=== PATIENT | female | born 1990 | race Caucasian/White ===

== ENCOUNTER → 2017-06-14 15:48 | Outpatient (CLI) | payer OTHER, SELFPAY ==
[2017-06-14 20:07] LABS: Group B Strep DNA By PCR POSITIVE (Negative); Probe Check PASS
== END ==
PROVIDERS: Visit Provider Obstetrics & Gynecology
DX: Z36.85 Encounter for antenatal screening for Streptococcus B (principal)
CPT/HCPCS: 87653

== ENCOUNTER 2017-07-03 11:00 | Inpatient (IN) | payer OTHER, SELFPAY ==
[2017-07-03 11:20] VITALS: BMI 32.3
[2017-07-03] MEDS: Lactated Ringers 1,000 ML 50 ML IV ×2 (11:25→12:52)
[2017-07-03 12:08] LABS: Hematocrit 37.7 % (37-47); Hemoglobin 12.5 g/dl (12.0-15.0); Mean Corp Hgb Conc 33.2 g/gl (32-36); Mean Corpuscular Hgb 31.3 pg (27.0-32.0); Mean Corpuscular Volume 94.3 fL (81-99); Platelet Count 194 K/mm3 (150-450)
[2017-07-03 12:09] LABS: Scan Indicated on CBC? Y/N NO
[2017-07-03] MEDS: Oxytocin 30 units/NS 500 ml 30 UNITS/500 ML IV.SOLN 334 UNITS IV (16:53)
--- NOTE | 2017-07-03 17:06 | PCM.OB.VAG ---
Vaginal Delivery Maternal Presentation: Active Labor Amniotic Membrane Rupture Type: Artificial Amniotic Fluid Description: Clear Final LADONNA: 07/08/17 Final LADONNA Source: US <20 weeks Gestational age: 39 Weeks and 2 Days Date of Procedure: 07/03/17 Pre-Operative Diagnosis: IUP Post-Operative Diagnosis: IUP Surgery/ Procedure Performed: Spontaneous Vaginal Delivery Type of Anesthesia: Epidural Description of Procedure: Spontaneous vaginal delivery of a viable female infant with Apgars of 8/9 in an occiput anterior presentation with clear amniotic fluid and normal three-vessel placenta. No episiotomy or laceration. Sponge counts okay. Delivery physician: Addison Tatum MD. Presentation: Vertex Placental Delivery Description: Spontaneous Placenta Disposition: [facility] Cord Vessel Description: 3 Vessels Cord Gases drawn per routine: ABG Cord Entanglement: None Estimated Blood Loss: 150 cc Infant A gender: Female (1 minute): 8 (5 minute): 9 Episiotomy Description: None Laceration: None Medications given after delivery: IV Pitocin Complications: None
--- NOTE | 2017-07-03 17:09 | OP.PCM_ITS ---
Vaginal Delivery Maternal Presentation: Active Labor Amniotic Membrane Rupture Type: Artificial Amniotic Fluid Description: Clear Final LADONNA: 07/08/17 Final LADONNA Source: US <20 weeks Gestational age: 39 Weeks and 2 Days Date of Procedure: 07/03/17 Pre-Operative Diagnosis: IUP Post-Operative Diagnosis: IUP Surgery/ Procedure Performed: Spontaneous Vaginal Delivery Type of Anesthesia: Epidural Description of Procedure: Spontaneous vaginal delivery of a viable female infant with Apgars of 8/9 in an occiput anterior presentation with clear amniotic fluid and normal three-vessel placenta. No episiotomy or laceration. Sponge counts okay. Delivery physician : Addison Tatum MD. Presentation: Vertex Placental Delivery Description: Spontaneous Placenta Disposition: [facility] Cord Vessel Description: 3 Vessels Cord Gases drawn per routine: ABG Cord Entanglement: None Estimated Blood Loss: 150 cc Infant A gender: Female (1 minute): 8 (5 minute): 9 Episiotomy Description: None Laceration: None Medications given after delivery: IV Pitocin Complications: None
--- NOTE | 2017-07-03 17:10 | DCINST_ITS ---
Discharge Diet: No Restrictions Discharge Activity: May Shower, May Take a Tub Bath May resume sexual activity in: 4-6 weeks Additional Activity Instructions:: Nothing in the vagina for 4-6 weeks. You may return to work/school in 6 weeks. Call your doctor if you observe: Fever of 101 or Higher, Inability to urinate, Inability to have a bowel movement, Using more than one pad per hour Additional Instructions: If you experience any of the following, contact your healthcare provider. * Bleeding that soaks a pad every hour for 2 hours * Unrelieved incision or abdominal pain * Swelling, redness, discharge or bleeding from your incision or episiotomy site * Your incision begins to separate * Problems urinating (including inability to urinate or burning while urinating) . * Visual changes * Severe headache * Flu-like symptoms * Pain or redness in one of both of your breasts * Pain, warmth, tenderness or swelling in your legs, especially the calf area * Frequent nausea and vomiting * Symptoms of depression or anxiety If you experience any of the following, call 911 or go to the nearest Emergency Room. * Chest pain * Problems breathing * Seizure activity * Partial or complete paralysis of a body part, slurred speech, weakness or drooping of the face, or a sudden inability to walk or hold your balance Allergies/Adverse Reactions: Allergies Penicillins [PCN] Allergy (Verified 07/03/17 15:44) Hives Pt states was a childhood reaction that caused hives. Pt stated that she has used amoxicillin on multiple occasions and has not had any reactions. acetaminophen [From Vicodin] Adverse Reaction (Verified 07/03/17 11:21) Vomiting hydrocodone [From Vicodin] Adverse Reaction (Verified 07/03/17 11:21) Vomiting Medications to take at Discharge Cetirizine HCl [Zyrtec] 10 mg PO DAILY 03/16/16 Tablet 07/03/17 Please Follow Up With: Sakina Storey MD - [phone] When: Call to make an appointment with your doctor in 6 weeks. Primary Care Physician: Yolette Prieto PA-C [Primary Care Provider] -
[2017-07-03] MEDS: Oxytocin 30 units/NS 500 ml 30 UNITS/500 ML IV.SOLN 167 UNITS IV (17:23)
[2017-07-03] MEDS: Ibuprofen 600 MG Tablet PO (18:47)
[2017-07-03 19:40] VITALS: BP 110/54; PULSE 91; RESP 17; TEMP 36.1; O2SAT 97
[2017-07-03 23:20] VITALS: BP 113/57; PULSE 70; RESP 17; TEMP 35.9; O2SAT 97
[2017-07-04] MEDS: Ibuprofen 600 MG Tablet PO ×3 (01:19→13:57)
[2017-07-04 05:00] VITALS: BP 135/76; PULSE 90; RESP 18; TEMP 36.1; O2SAT 97
[2017-07-04 07:50] VITALS: BP 126/79; PULSE 82; RESP 16; TEMP 36.6; O2SAT 98
[2017-07-04] MEDS: Senna/Docusate Sodium 1 Tablet PO (08:03)
--- NOTE | 2017-07-04 08:57 | PCM.PN.OB ---
Subjective: Patient without complaints. Breast-feeding going well. Minimal vaginal bleeding. Wants to go home. - Physical Exam Vital Signs AF, VSS Temp Pulse Resp BP Pulse Ox 97.8 F 82 16 126/79 H 98 07/04/17 07:50 07/04/17 07:50 07/04/17 07:50 07/04/17 07:50 07/04/17 07:50 Oxygen Delivery Method Room Air Weight: 200 lb Body Mass Index (BMI) 32.3 Intake and Output for Last 24 Hours 07/02/17 07/03/17 07/04/17 23:59 23:59 23:59 Intake Total 1824 / 1824 Output Total 2500 / 2500 Balance -676 / -676 Laboratory Tests Past 24 Hrs 07/03/17 07/03/17 11:25 11:25 WBC 11.0 RBC 4.00 L Hgb 12.5 Hct 37.7 MCV 94.3 MCH 31.3 MCHC 33.2 RDW 14.0 RDW Differential 48.0 H Plt Count 194 MPV 10.0 Blood Type O POSITIVE Antibody Screen NEGATIVE Assessment/Plan Doing well. Will release to home with routine instructions.
[2017-07-04 12:00] VITALS: BP 127/67; PULSE 87; RESP 16; TEMP 36.8; O2SAT 97
[2017-07-04 15:40] VITALS: BP 130/72; PULSE 87; RESP 16; TEMP 36.6; O2SAT 98
--- NOTE | 2017-07-04 18:00 | NURSING ---
baby bands verified by nurse and mother. baby discharge sheet signed by mother
== END 2017-07-04 18:10 | disposition home or self-care (01) | DRG 775 ==
PROVIDERS: Admitting Provider Obstetrics & Gynecology; Family Provider Family Medicine; PCP Family Medicine; Visit Provider Obstetrics & Gynecology
DX: O80 Encounter for full-term uncomplicated delivery (principal); Z79.899 Other long term (current) drug therapy; Z3A.39 39 weeks gestation of pregnancy; Z37.0 Single live birth
CPT/HCPCS: 59025; 59050; 85027; 86850; 86900; 99218; J7120; G0378

== ENCOUNTER → 2018-06-27 15:19 | Outpatient (CLI) | payer OTHER, SELFPAY | PROVIDERS: Visit Provider Obstetrics & Gynecology | DX: Z12.4 Encounter for screening for malignant neoplasm of cervix (principal) | CPT/HCPCS: 88175; G0145 ==

== ENCOUNTER → 2018-08-04 14:04 | Outpatient (CLI) | payer OTHER, SELFPAY ==
[2018-08-04 22:10] LABS: Chlamydia Trachomatis by PCR Negative (Negative); Neisserai gonorrhoeae by PCR Negative (Negative); Probe Check PASS; Sample Adequacy Control PASS; Specimen Processing Control PASS
== END ==
PROVIDERS: Visit Provider Obstetrics & Gynecology
DX: Z11.3 Encounter for screening for infections with a predominantly sexual mode of transmission (principal); Z32.01 Encounter for pregnancy test, result positive
CPT/HCPCS: 87491; 87591

== ENCOUNTER → 2018-08-16 15:55 | Outpatient (CLI) | payer OTHER, SELFPAY ==
[2018-08-16 17:31] LABS: Color, Urine Straw (Yellow); Glucose, Dipstick Normal (Normal); Ketone-Dipstick Negative (Negative); Leukocyte Esterase-Dipstick Negative /ul (Negative); Nitrite-Dipstick Negative (Negative); Occult Blood-Urine Negative /ul (Negative); Protein-Dipstick Negative (Negative); Urine Bilirubin Dipstick Negative (Negative); Urine Clarity Clear (Clear); Urine Urobilinogen Normal (Normal); Urine pH 6.5 (5.0 - 8.0)
[2018-08-16 17:34] LABS: Absolute Lymphocyte Count 2.15 X10^3/ul (0.83-4.51); Absolute Neutrophil Count 5.2 X10^3/uL (2.0-7.7); Basophil# 0.03 X10^3/uL; Basophil% 0.4 % (0-1); Eosinophil# 0.15 X10^3/uL; Eosinophils% 1.9 % (0-5); Hematocrit 38.8 % (37-47); Hemoglobin 13.4 g/dl (12.0-15.0); Lymphocyte # 2.15 X10^3/ul (4.0); Mean Corp Hgb Conc 34.5 g/gl (32-36); Mean Corpuscular Hgb 30.5 pg (27.0-32.0); Mean Corpuscular Volume 88.2 fL (81-99); Mean Platelet Vol. 10.5 fl (6.2-12.0); Monocyte# 0.42 X10^3/uL; Monocyte% 5.3 % (0-10); Neutrophil # 5.18 X10^3/uL (2.7-7.7); Neutrophil % 65.1 % (47-70); Platelet Count 278 K/mm3 (150-450); RBC Distribution Width CV 12.3 % (11.6-14.6); RBC Distribution Width SD 38.8 fl (35.1-43.9)
[2018-08-16 17:41] LABS: POSITIVE COUNT NO; POSITIVE DIFFERENTIAL NO; POSITIVE MORPHOLOGY NO
[2018-08-16 17:53] LABS: Thyroid Stim Hormone (TSH) 0.45 uIU/mL (0.358-3.74)
[2018-08-16 18:07] LABS: Amphetamine Urine VISTA NEGATIVE (<1000 ng/mL); Barbiturate Urine VISTA NEGATIVE (< 200 ng/mL); Benzodiazepine Urine VISTA NEGATIVE (< 200 ng/mL); Cocaine Urine VISTA NEGATIVE (< 300 ng/mL); Ecstacy Urine VISTA NEGATIVE (< 500 ng/mL); Methadone Urine VISTA NEGATIVE (< 300 ng/mL); PCP Urine VISTA NEGATIVE (< 25 ng/mL); THC Urine VISTA NEGATIVE (< 50 ng/mL); Vista UDS pH Range 6
[2018-08-16 18:10] LABS: COTININE Drug Screen Negative (<200 ng/mL)
[2018-08-16 18:35] LABS: HIV - WCH Non-Reactive (Nonreactive); Rubella IgG 122.2 IU/mL
[2018-08-18 16:36] LABS: HEPATITIS B SURFACE AG Negative (Negative); Hep C Antibodies <0.1 s/co ratio (0.0-0.9)
[2018-08-19 01:43] LABS: Prenatal RPR NONREACTIVE (NONREACTIVE)
== END ==
PROVIDERS: Visit Provider Obstetrics & Gynecology
DX: Z34.81 Encounter for supervision of other normal pregnancy, first trimester (principal)
CPT/HCPCS: 36415; 80307; 81002; 84443; 85025; 86703; 86762; 86803; 87340

== ENCOUNTER → 2018-09-14 13:42 | Outpatient (CLI) | payer OTHER, SELFPAY | PROVIDERS: Visit Provider Obstetrics & Gynecology | DX: O26.891 Other specified pregnancy related conditions, first trimester (principal); R30.0 Dysuria; Z3A.00 Weeks of gestation of pregnancy not specified | CPT/HCPCS: 87086; 87088 ==

== ENCOUNTER → 2018-12-29 16:09 | Outpatient (CLI) | payer OTHER, SELFPAY ==
[2018-12-29 17:27] LABS: Hematocrit 34.7 % (37-47); Hemoglobin 11.6 g/dL (12.0-15.0); Mean Corp Hgb Conc 33.4 g/dL (32-36); Mean Corpuscular Volume 95.9 fL (81-99); Platelet Count 213 K/mm3 (150-450); RBC Distribution Width CV 13.2 % (11.6-14.6); RBC Distribution Width SD 46.4 fl (35.1-43.9); Red Blood Count 3.62 M/mm3 (4.2-5.4); White Blood Count 8.8 K/mm3 (4.4-11.0)
[2018-12-29 18:11] LABS: Glucose Challenge Gest 1H 50g 89 mg/dL (70-140)
== END ==
PROVIDERS: Visit Provider Obstetrics & Gynecology
DX: Z34.83 Encounter for supervision of other normal pregnancy, third trimester (principal)
CPT/HCPCS: 36415; 82950; 85027

== ENCOUNTER → 2019-02-22 14:17 | Outpatient (CLI) | payer OTHER, SELFPAY | PROVIDERS: Visit Provider Advanced Practice Midwife | DX: Z36.85 Encounter for antenatal screening for Streptococcus B (principal) | CPT/HCPCS: 87081 ==

== ENCOUNTER 2019-03-15 00:46 | Inpatient (IN) | payer OTHER, SELFPAY ==
[2019-03-15 01:18] VITALS: BMI 35.2
[2019-03-15] MEDS: Lactated Ringers 1,000 ML 50 ML IV (01:20)
[2019-03-15] MEDS: Lactated Ringers 500 ML 999 ML IV ×2 (01:25→04:19)
[2019-03-15 02:01] LABS: Absolute Lymphocyte Count 1.84 X10^3/uL (0.83-4.51); Absolute Neutrophil Count 7.9 X10^3/uL (2.0-7.7); Basophil# 0.04 X10^3/uL; Basophil% 0.4 % (0-1); Eosinophil# 0.17 X10^3/uL; Eosinophils% 1.6 % (0-5); Hematocrit 35.5 % (37-47); Hemoglobin 11.5 g/dL (12.0-15.0); Lymphocyte # 1.84 X10^3/ul (4.0); Lymphocyte % 17.2 % (19-41); Mean Corp Hgb Conc 32.4 g/dL (32-36); Mean Corpuscular Hgb 31.6 pg (27.0-32.0); Mean Corpuscular Volume 97.5 fL (81-99); Mean Platelet Vol. 9.7 fl (6.2-12.0); Monocyte# 0.62 X10^3/uL; Monocyte% 5.8 % (0-10); NRBC Flagged by Analyzer 0 % (0-5); Neutrophil # 7.85 X10^3/uL (2.7-7.7); Neutrophil % 73.6 % (47-70); Platelet Count 167 K/mm3 (150-450); RBC Distribution Width CV 13.8 % (11.6-14.6); Red Blood Count 3.64 M/mm3 (4.2-5.4); White Blood Count 10.7 K/mm3 (4.4-11.0)
--- NOTE | 2019-03-15 02:05 | HP.PCM_ITS ---
- Problem List (1) 39 weeks gestation of Status: Acute History Date of Admission: 03/17/16 Final LADONNA: 03/21/19 Final LADONNA Source: US <20 weeks Gestational age: 39 Weeks and 1 Days History of this : This is a 28 year-old, G [6], P [2], at 39 weeks gestational age. Allergies Penicillins [PCN] Allergy (Verified 07/03/17 15:44) Hives Pt states was a childhood reaction that caused hives. Pt stated that she has used amoxicillin on multiple occasions and has not had any reactions. acetaminophen [From Vicodin] Adverse Reaction (Verified 07/03/17 11:21) Vomiting hydrocodone [From Vicodin] Adverse Reaction (Verified 07/03/17 11:21) Vomiting Home Medications: Home Medications Tablet 07/03/17 Smoking Status: Never smoker Alcohol: None Number of Fetus(es): 1 NST - FHR Rate Baby A Baseline: 140 Variability:: Moderate Accelerations:: 15 x 15 Decelerations:: Variable NST Reactive:: Yes FHR Category:: Category II Uterine Activity:: UC Q4 minutes History Past Pregnancies: Past Pregnancies Delivery Date Name GA/ Weeks Outcome Route Wt Sex Labor Length Anesthesia Delivery Location Provider FOB PRIOR HISTORY: 1 10/01/13 7 wks 0 hrs Sab 2 12/30/14 Male 38 wks 18 hrs Vag 3 03/01/16 6 wks 0 hrs Sab 4 09/26/16 6 wks 0 hrs Sab 5 07/03/17 Female 39 wks 15 hrs Vag Labs: Mom's Problem List Problem Status Onset Code 39 weeks gestation of Acute Z3A.[id number] Mom's Labs & Results 03/15/19 03/15/19 03/15/19 01:20 01:20 01:52 WBC Cancelled 10.7 Corrected WBC Cancelled RBC Cancelled 3.64 L Hgb Cancelled 11.5 L Hct Cancelled 35.5 L MCV Cancelled 97.5 MCH Cancelled 31.6 MCHC Cancelled 32.4 RDW Std Deviation Cancelled 49.0 H RDW Coeff of Benny Cancelled 13.8 Plt Count Cancelled 167 MPV Cancelled 9.7 Immature Gran % (Auto) Cancelled 1.400 H Neut % (Auto) Cancelled 73.6 H Lymph % (Auto) Cancelled 17.2 L [place] % (Auto) Cancelled 5.8 Eos % (Auto) Cancelled 1.6 Baso % (Auto) Cancelled 0.4 Absolute Neuts (auto) Cancelled 7.9 H Absolute Lymphs (auto) Cancelled 1.84 Total Counted Cancelled Neutrophils % (Manual) Cancelled Band Neutrophils % Cancelled Lymphocytes % (Manual) Cancelled Monocytes % (Manual) Cancelled Eosinophils % (Manual) Cancelled Basophils % (Manual) Cancelled Metamyelocytes % Cancelled Myelocytes % Cancelled Promyelocytes % Cancelled Blast Cells % Cancelled Plasma Cell % (Manual) Cancelled Other Cells % Cancelled Nucleated RBC % Cancelled 0 Nucleated RBCs/100 WBC Cancelled Differential Comment Cancelled Diff Path Review Cancelled Hypersegmented Neuts Cancelled Atypical Lymphocytes Cancelled Reactive Lymphocytes Cancelled Smudge Cells Cancelled Toxic Granulation Cancelled Toxic Vacuolation Cancelled Dohle Bodies Cancelled Navjot Rods Cancelled Platelet Estimate Cancelled Plt Morphology Comment Cancelled RBC Morphology Cancelled Polychromasia Cancelled Hypochromasia Cancelled Poikilocytosis Cancelled Basophilic Stippling Cancelled Anisocytosis Cancelled Microcytosis Cancelled Macrocytosis Cancelled Spherocytes Cancelled Sickle Cells Cancelled Target Cells Cancelled Tear Drop Cells Cancelled Ovalocytes Cancelled Stomatocytes Cancelled Echols-Fifty-Six Bodies Cancelled Row[place] Cells Cancelled Bite Cells Cancelled Crenated Cell Cancelled Acanthocytes (Spur) Cancelled Rouleaux Cancelled Schistocytes Cancelled Blood Type Pending Antibody Screen Pending Course Did the patient receive Yes care? Labs Blood Type: O RH: POSITIVE RPR/VDRL/Syphilis Nonreactive Rubella status Immune HbSAg Negative Date Done: 08/16/18 Chlamydia Negative Gonorrhea Negative HIV/AIDS Non-Reactive Group B Strep: Negative Current Obstetrical History Gestational Diabetes No Incompetent Cervix No Infertility No IUGR No Macrosomia No Hypertension/Pre-eclampsia No Placenta Previa/Abruption No PTL/PROM No Uterine anomaly No Oligohydramnios No Polyhydramnios No Multiple gestation No Past Medical History Asthma No: past hx when younger Diabetes No Hypertension No Heart disease No Mitral valve prolapse No Neurologic/Seizure disorder/ No Migraines Kidney disease No Liver disease No Varicosities Yes: bilateral legs Clotting disorders/Hx of DVT No Thyroid Dysfunction No Other medical diseases No Psychiatric disorders No Major trauma No Abnormal PAP smear No Sleep apnea No Mammogram in the last 2 years No Medications Taken During Reason for taking medication [ in first trimester Progesterone] Social History Marital Status: Alleged father James Sloan Smoking No Smoking Status Never smoker Expected Infant Delivery Method: Spontaneous Vaginal Number of Visits: 11 Review of Systems Constitutional: Denies: Chills, Fever, Weight Change HEENT: Denies: Head Aches, Sinus Congestion, Sinus Drainage Cardiovascular: Denies: Chest Pain, Palpitations Respiratory: Denies: Cough, Shortness of breath at rest, Sputum production Gastrointestinal: Denies: Abdominal Pain, Nausea, Vomiting Genitourinary: Denies: Dysuria Musculoskeletal: Denies: Joint Pain, Joint Tenderness Skin: Denies: Rash, Wounds Neurological: Denies: Numbness, Tingling, Focal weakness Psychiatric: Denies: Anxiety, Depression, Homicidal Ideations, Suicidal Ideations Hematologic/ Lymphatic: Denies: Easy Bruising, Easy Bleeding Physical Exam General: Alert, Oriented x3, No apparent distress HEENT: Atraumatic, Normocephalic. 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 Negative for: Vulvar lesions Estimated gestational size: Appropriate for gestational size Presentation: Cephalic Cervix Dilation (cm): 7 Station: -2 Effacement (%): 70 Assessment/Plan All Active Problems 39 weeks gestation of (Acute) This is a 28 year-old, G [6], P [2], at 39 weeks gestational age. Active labor FHR baseline 140, +accels, +variables with moderate variability. Category II. Receiving IV fluids. In collaboration with attending Makayla Sanderson is getting IV bolus prior to epidural. Expect
[2019-03-15] MEDS: fentaNYL-bupivacaine (epidural) 100 ML BAG EPIDURAL (02:35)
[2019-03-15] MEDS: Oxytocin 30 units/NS 500 ml 30 UNITS/500 ML IV.SOLN 334 UNITS IV (05:02)
--- NOTE | 2019-03-15 05:28 | PCM.OPRPT ---
Problem List (1) 39 weeks gestation of Status: Acute Vaginal Delivery Maternal Presentation: Active Labor presents for active labor, contractions Q4 minutes Amniotic Membrane Rupture Type: Spontaneous Rupture of Membrane time: with onset of pushing Amniotic Fluid Description: Clear Final LADONNA: 03/21/19 Final LADONNA Source: US <20 weeks Gestational age: 39 Weeks and 1 Days Date of Procedure: 03/15/19 Pre-Operative Diagnosis: 39 weeks gestation Post-Operative Diagnosis: S/P Surgery/ Procedure Performed: Spontaneous Vaginal Delivery Type of Anesthesia: Epidural Description of Procedure: CTSP when complete/+2 with intact bag. Pushed well, SROM, delivered a viable male over intact perineum OA to JOSE DANIEL. Loose cord removed from infants shoulder and body, placed on mothers abdomen. Apgars 8/9. Cord clamped x2 by provider and cut by FOB. Placenta delivered spontaneously, Ruano mechanism, intact, 3 vessel cord, central insertion. EBL 150 Presentation: JOSE DANIEL Placental Delivery Description: Spontaneous Placenta Disposition: [facility] Cord Vessel Description: 3 Vessels Cord Entanglement: None - loose around shoulder, wrapped around body Estimated Blood Loss: 150 A gender: Male (1 minute): 8 (5 minute): 9 Episiotomy Description: None Laceration: None - perineal skid francine Medications given after delivery: IV Pitocin
--- NOTE | 2019-03-15 05:42 | DCINST_ITS ---
Discharge Diet: No Restrictions Discharge Activity: Return to Normal Activity, May not drive while taking narcotic pain medications., May Shower May resume sexual activity in: 4-6 weeks Additional Activity Instructions:: Nothing in the vagina for 4-6 weeks. You may return to work/school in 6 weeks. Call your doctor if you observe: Fever of 101 or Higher, Inability to urinate, Inability to have a bowel movement, Using more than one pad per hour, Shortness of breath, Dizziness, Chest pain, Uncontrolled pain Additional Instructions: If you experience any of the following, contact your healthcare provider. * Bleeding that soaks a pad every hour for 2 hours * Unrelieved incision or abdominal pain * Swelling, redness, discharge or bleeding from your incision or episiotomy site * Your incision begins to separate * Problems urinating (including inability to urinate or burning while urinating). * Visual changes * Severe headache * Flu-like symptoms * Pain or redness in one of both of your breasts * Pain, warmth, tenderness or swelling in your legs, especially the calf area * Frequent nausea and vomiting * Symptoms of depression or anxiety If you experience any of the following, call 911 or go to the nearest Emergency Room. * Chest pain * Problems breathing * Seizure activity * Partial or complete paralysis of a body part, slurred speech, weakness or drooping of the face, or a sudden inability to walk or hold your balance Allergies/Adverse Reactions: Allergies Penicillins [PCN] Allergy (Verified 07/03/17 15:44) Hives Pt states was a childhood reaction that caused hives. Pt stated that she has used amoxicillin on multiple occasions and has not had any reactions. acetaminophen [From Vicodin] Adverse Reaction (Verified 07/03/17 11:21) Vomiting hydrocodone [From Vicodin] Adverse Reaction (Verified 07/03/17 11:21) Vomiting Medications to take at Discharge Tablet 07/03/17 Please Follow Up With: Sakina Storey MD When: Call to make an appointment with your doctor in 6 weeks. Test Results: Test results from this visit will be discussed in further detail at your follow- up appointment, if applicable. Proposed Discharge Date: 03/17/19
[2019-03-15 07:30] VITALS: BP 115/58; PULSE 99; RESP 18; TEMP 35.7
[2019-03-15] MEDS: 0.9% Saline Lock 10 ML Syringe IV (07:30)
--- NOTE | 2019-03-15 09:42 | PN.OBGYN_ITS ---
Patient Problems: Active and Suspected Problems 39 weeks gestation of (Acute) Subjective: Tired but transitioning well 2 hours post delivery; has breastfed well and now sleeping in crib next to pts bed; bedside and supportive; denies needs at this time Objective: AVSS - Physical Exam Vitals/I&O's: Vital Signs Temp Pulse Resp BP 96.3 F L 99 18 115/58 L 03/15/19 07:30 03/15/19 07:30 03/15/19 07:30 03/15/19 07:30 Oxygen Delivery Method Room Air Weight: 218 lb 4.122 oz Body Mass Index (BMI) 35.2 Intake and Output for Last 24 Hours 03/13/19 03/14/19 03/15/19 23:59 23:59 23:59 Intake Total Balance General: Alert, Oriented x3, Cooperative, No apparent distress Neurological: Cranial nerves II-XII grossly intact Psych/Mental Status: Normal Affect, Appropriate, Alert and oriented to time, place, person, mood and affect Laboratory Results 03/15/19 01:20: WBC Cancelled, Corrected WBC Cancelled, RBC Cancelled, Hgb Cancelled, Hct Cancelled, MCV Cancelled, MCH Cancelled, MCHC Cancelled, RDW Std Deviation Cancelled, RDW Coeff of Benny Cancelled, Plt Count Cancelled, MPV Cancelled, Immature Gran % (Auto) Cancelled, Neut % (Auto) Cancelled, Lymph % (Auto) Cancelled, [place] % (Auto) Cancelled, Eos % (Auto) Cancelled, Baso % (Auto) Cancelled, Absolute Neuts (auto) Cancelled, Absolute Lymphs (auto) Cancelled, Total Counted Cancelled, Neutrophils % (Manual) Cancelled, Band Neutrophils % Cancelled, Lymphocytes % (Manual) Cancelled, Monocytes % (Manual) Cancelled, Eosinophils % (Manual) Cancelled, Basophils % (Manual) Cancelled, Metamyelocytes % Cancelled, Myelocytes % Cancelled, Promyelocytes % Cancelled, Blast Cells % Cancelled, Plasma Cell % (Manual) Cancelled, Other Cells % Cancelled, Nucleated RBC % Cancelled, Nucleated RBCs/100 WBC Cancelled, Differential Comment Cancelled, Diff Path Review Cancelled, Hypersegmented Neuts Cancelled, Atypical Lymphocytes Cancelled, Reactive Lymphocytes Cancelled, Smudge Cells Cancelled, Toxic Granulation Cancelled, Toxic Vacuolation Cancelled, Dohle Bodies Cancelled, Navjot Rods Cancelled, Platelet Estimate Cancelled, Plt Morphology Comment Cancelled, RBC Morphology Cancelled, Polychromasia Cancelled, Hypochromasia Cancelled, Poikilocytosis Cancelled, Basophilic Stippling Cancelled, Anisocytosis Cancelled, Microcytosis Cancelled, Macrocytosis Cancelled, Spherocytes Cancelled, Sickle Cells Cancelled, Target Cells Cancelled, Tear Drop Cells Cancelled, Ovalocytes Cancelled, Stomatocytes Cancelled, [place] Bodies Cancelled, [place] Cells Cancelled, Bite Cells Cancelled, Crenated Cell Cancelled, Acanthocytes (Spur) Cancelled, Rouleaux Cancelled, Schistocytes Cancelled 03/15/19 01:20: Blood Type O POSITIVE, Antibody Screen NEGATIVE 03/15/19 01:52: WBC 10.7, RBC 3.64 L, Hgb 11.5 L, Hct 35.5 L, MCV 97.5, MCH 31.6, MCHC 32.4, RDW Std Deviation 49.0 H, RDW Coeff of Benny 13.8, Plt Count 167, MPV 9.7, Immature Gran % (Auto) 1.400 H, Neut % (Auto) 73.6 H, Lymph % (Auto) 17.2 L, [place] % (Auto) 5.8, Eos % (Auto) 1.6, Baso % (Auto) 0.4, Absolute Neuts (auto) 7.9 H, Absolute Lymphs (auto) 1.84, Nucleated RBC % 0 Current Medications Acetaminophen (Tylenol) 1,000 mg PO Q8H PRN PRN PRN Reason: Pain Score 1-3/10 Bisacodyl (Dulcolax) 10 mg RECTAL UD PRN PRN Reason: If no BM Dibucaine (Dibucaine) 1 applic TOPICAL TID PRN PRN; Protocol PRN Reason: Discomfort Hydrocortisone (Hytone) 1 applic TOPICAL TID PRN PRN; Protocol PRN Reason: Discomfort Ibuprofen (Motrin) 600 mg PO Q6H PRN PRN PRN Reason: Pain Score 1-3/10 Methylergonovine Maleate (Methergine) 0.2 mg IM X1 PRN PRN Reason: Excess bleeding/uterine atony Ondansetron HCl (Zofran) 4 mg IV Q4H PRN PRN PRN Reason: Nausea Senna/Docusate Sodium (Senokot-S, [place]-Colace) 1 - 2 tablet PO DAILY PRN PRN PRN Reason: Constipation Simethicone (Mylicon) 80 mg PO PCHS PRN PRN Reason: Indigestion/Stomach pain Sodium Chloride () 5 - 15 ml IV UD PRN PRN Reason: SALINE FLUSH Last Admin: 03/15/19 07:30 Dose: 10 ml Documented by: Zolpidem Tartrate (Ambien (Generic)) 5 mg PO QHS PRN PRN PRN Reason: Insomnia Medical Necessity - Tobacco Use Smoking Status: Never smoker Assessment/Plan All Active Problems 39 weeks gestation of (Acute) Assessment: 38yo G6now P3 delivered this morning at 39w1d gestation by 9w2d [facility], still in recovery from delivery Plan: Continue routine care
[2019-03-15 11:36] VITALS: BP 116/73; PULSE 100; RESP 16; TEMP 37.6
[2019-03-15] MEDS: Ibuprofen 600 MG Tablet PO ×2 (12:33→23:06)
--- NOTE | 2019-03-15 13:15 | NURSING ---
Reviewed student nurse charting and it is complete.
[2019-03-15 16:00] VITALS: BP 122/79; PULSE 86; RESP 16; TEMP 36.4
[2019-03-15 19:55] VITALS: BP 131/80; PULSE 91; RESP 16; TEMP 36.5; O2SAT 97
[2019-03-16 01:01] VITALS: BP 133/77; PULSE 89; RESP 17; TEMP 37.2
[2019-03-16 03:00] VITALS: BP 117/56; PULSE 82; RESP 16; TEMP 37
--- NOTE | 2019-03-16 06:39 | PCM.PN.OB ---
Patient Problems: Active and Suspected Problems 39 weeks gestation of (Acute) Subjective: No issues overnight. Doing well with mild cramping nursing. Denies heavy lochia. clusterfed overnight. Objective: avss - Physical Exam Vitals/I&O's: Vital Signs Temp Pulse Resp BP Pulse Ox 98.6 F 82 16 117/56 L 97 03/16/19 03:00 03/16/19 03:00 03/16/19 03:00 03/16/19 03:00 03/15/19 19:55 Oxygen Delivery Method Room Air Weight: 99 kg Body Mass Index (BMI) 35.2 Intake and Output for Last 24 Hours 03/14/19 03/15/19 03/16/19 23:59 23:59 23:59 Intake Total 2105.15 / 2105.15 Output Total 1000 / 1000 Balance 1105.15 / 1105.15 General: Alert, Oriented x3, Cooperative, No apparent distress HEENT: Atraumatic, Normocephalic Lungs: Normal air movement Cardiovascular: Regular rate, Regular Rhythm, Normal S1, Normal S2 Abdomen: Soft, Non Tender, Non-Distended, - - Fundus firm and nontender Extremities: No edema, No Calf Tenderness Neurological: Neuro grossly intact Psych/Mental Status: Normal Affect, Appropriate, Alert and oriented to time, place, person, mood and affect Current Medications Acetaminophen (Tylenol) 1,000 mg PO Q8H PRN PRN PRN Reason: Pain Score 1-3/10 Bisacodyl (Dulcolax) 10 mg RECTAL UD PRN PRN Reason: If no BM Dibucaine (Dibucaine) 1 applic TOPICAL TID PRN PRN; Protocol PRN Reason: Discomfort Hydrocortisone (Hytone) 1 applic TOPICAL TID PRN PRN; Protocol PRN Reason: Discomfort Ibuprofen (Motrin) 600 mg PO Q6H PRN PRN PRN Reason: Pain Score 1-3/10 Last Admin: 03/15/19 23:06 Dose: 600 mg Documented by: Methylergonovine Maleate (Methergine) 0.2 mg IM X1 PRN PRN Reason: Excess bleeding/uterine atony Ondansetron HCl (Zofran) 4 mg IV Q4H PRN PRN PRN Reason: Nausea Senna/Docusate Sodium (Senokot-S, [place]-Colace) 1 - 2 tablet PO DAILY PRN PRN PRN Reason: Constipation Simethicone (Mylicon) 80 mg PO PCHS PRN PRN Reason: Indigestion/Stomach pain Sodium Chloride () 5 - 15 ml IV UD PRN PRN Reason: SALINE FLUSH Last Admin: 03/15/19 07:30 Dose: 10 ml Documented by: Zolpidem Tartrate (Ambien (Generic)) 5 mg PO QHS PRN PRN PRN Reason: Insomnia Medical Necessity - Tobacco Use Smoking Status: Never smoker Assessment/Plan All Active Problems 39 weeks gestation of (Acute) 28yo PPD#1 s/p doing well. -Rh positive -Routine care -Plan for d/c home later today
[2019-03-16 08:03] VITALS: BP 108/48; PULSE 75; RESP 16; TEMP 36
[2019-03-16] MEDS: Ibuprofen 600 MG Tablet PO (08:05)
--- NOTE | 2019-03-16 09:34 | PCM.PN.OB ---
Subjective: Pain well controlled, tolerating diet, passing flatus, well; desires DC home today Objective: AVSS Breasts, soft, nipples mildly excoriated Fundus firm, midline, u/1, lochia small - Physical Exam Vitals/I&O's: Vital Signs Temp Pulse Resp BP Pulse Ox 96.8 F L 75 16 108/48 L 97 03/16/19 08:03 03/16/19 08:03 03/16/19 08:03 03/16/19 08:03 03/15/19 19:55 Oxygen Delivery Method Room Air Weight: 218 lb 4.122 oz Body Mass Index (BMI) 35.2 Intake and Output for Last 24 Hours 03/14/19 03/15/19 03/16/19 23:59 23:59 23:59 Intake Total 2105.15 / 2105.15 Output Total 1000 / 1000 Balance 1105.15 / 1105.15 General: Alert, Oriented x3, Cooperative, No apparent distress HEENT: PERRLA, EOMI Oral: Moist Mucosa Neck: Supple Lungs: Clear to auscultation, Normal air movement Cardiovascular: Regular rate, Regular Rhythm Abdomen: Bowel Sounds Present, Soft, Non Tender, Non-Distended, Passing Flatus Extremities: Capillary Refill Less than 3 Seconds, No Calf Tenderness, Edema - mild, non pitting bilateral lower extremities Skin: No rashes Musculoskeletal: No Tenderness to Palpation of Joints or Extremities Neurological: Cranial nerves II-XII grossly intact, Deep Tendon Reflexes 2+/4 and Symmetrical Psych/Mental Status: Normal Affect, Appropriate, Alert and oriented to time, place, person, mood and affect Current Medications Acetaminophen (Tylenol) 1,000 mg PO Q8H PRN PRN PRN Reason: Pain Score 1-3/10 Bisacodyl (Dulcolax) 10 mg RECTAL UD PRN PRN Reason: If no BM Dibucaine (Dibucaine) 1 applic TOPICAL TID PRN PRN; Protocol PRN Reason: Discomfort Hydrocortisone (Hytone) 1 applic TOPICAL TID PRN PRN; Protocol PRN Reason: Discomfort Ibuprofen (Motrin) 600 mg PO Q6H PRN PRN PRN Reason: Pain Score 1-3/10 Last Admin: 03/16/19 08:05 Dose: 600 mg Documented by: Methylergonovine Maleate (Methergine) 0.2 mg IM X1 PRN PRN Reason: Excess bleeding/uterine atony Ondansetron HCl (Zofran) 4 mg IV Q4H PRN PRN PRN Reason: Nausea Senna/Docusate Sodium (Senokot-S, [place]-Colace) 1 - 2 tablet PO DAILY PRN PRN PRN Reason: Constipation Simethicone (Mylicon) 80 mg PO PCHS PRN PRN Reason: Indigestion/Stomach pain Sodium Chloride () 5 - 15 ml IV UD PRN PRN Reason: SALINE FLUSH Last Admin: 03/15/19 07:30 Dose: 10 ml Documented by: Zolpidem Tartrate (Ambien (Generic)) 5 mg PO QHS PRN PRN PRN Reason: Insomnia Medical Necessity - Tobacco Use Smoking Status: Never smoker Assessment/Plan All Active Problems 39 weeks gestation of (Acute) Assessment: 38yo G6 now P3 delivered this morning at 39w1d gestation by 9w2d US PP day #1, normal involution, normal course Plan: Discharge teaching completed Discharge home today at 24 hours if remains stable
[2019-03-16 13:34] VITALS: BP 116/56; PULSE 86; RESP 16; TEMP 36.8
--- NOTE | 2019-03-16 14:25 | NURSING ---
mother dc home at this time
== END 2019-03-16 14:25 | disposition home or self-care (01) | DRG 807 ==
PROVIDERS: Admitting Provider Obstetrics & Gynecology; Visit Provider Obstetrics & Gynecology
DX: O76 Abnormality in fetal heart rate and rhythm complicating labor and delivery (principal); O69.82X0 Labor and delivery complicated by other cord entanglement, without compression, not applicable or unspecified; Z3A.39 39 weeks gestation of pregnancy; Z37.0 Single live birth
CPT/HCPCS: 59025; 59050; 85025; 86850; 86900; 86901; 99218; J7120; A4216; G0378

== ENCOUNTER → 2019-04-24 13:31 | Outpatient (CLI) | payer OTHER, SELFPAY ==
[2019-04-24 16:39] LABS: Free T3 2.7 pg/mL (2.18-3.98); T4 Free Direct 0.93 ng/dL (0.76-1.46); Thyroid Stim Hormone (TSH) 1.04 uIU/mL (0.358-3.74)
== END ==
PROVIDERS: Visit Provider Obstetrics & Gynecology
DX: K59.00 Constipation, unspecified (principal); R68.89 Other general symptoms and signs
CPT/HCPCS: 36415; 84439; 84443; 84481

== ENCOUNTER 2020-07-10 15:14 | Emergency (ER) | payer OTHER, SELFPAY ==
[2020-07-10 15:15] VITALS: BP 127/83; PULSE 88; RESP 18; TEMP 36.6; O2SAT 97; BMI 30.7
--- NOTE | 2020-07-10 15:33 | ED.VIS.GEN ---
History of Present Illness Chief Complaint: Laceration Informant: Patient Onset: Today Narrative: [id number] presents laceration right thumb prior to arrival. Broke in a fish bowl, she picked that up, glass broke additionally coming down onto her finger. No paresthesias. Tetanus unknown. No anticoagulation medicines. Prior similar symptoms: No Past Medical History - Allergies and Home Meds Allergies/Adverse Reactions: Allergies Penicillins [PCN] Allergy (Verified 07/10/20 15:16) Hives Pt states was a childhood reaction that caused hives. Pt stated that she has used amoxicillin on multiple occasions and has not had any reactions. acetaminophen [From Vicodin] Adverse Reaction (Verified 07/10/20 15:16) Vomiting hydrocodone [From Vicodin] Adverse Reaction (Verified 07/10/20 15:16) Vomiting Past Medical History: None Smoking Status: Never smoker Review of Systems General: Denies: Chills, Fever, Sweats Eyes: Denies: Visual changes - bilaterally, Diplopia ENT: Denies: Rhinorrhea, Sore throat Cardiovascular: Denies: Chest pain, Palpitations Respiratory: Denies: Dyspnea, Cough, Dyspnea on exertion Gastrointestinal: Denies: Abdominal pain, Nausea, Vomiting, Diarrhea, Melena, Hematochezia Genitourinary: Denies: Dysuria, Hematuria, Frequency Musculoskeletal: Denies: Back pain, Extremity Pain Skin: Reports: Wounds. Denies: Rash Neurological: Denies: Headache, Weakness, Numbness Physical Exam Vital Signs/Narrative: Vital Signs Temp Pulse Resp BP Pulse Ox 07/10/20 15:15 97.8 F 88 18 127/83 H 97 Inital Vital Signs reviewed: Yes General: Well nourished, Well developed, No Acute Distress Head: Normocephalic, Atraumatic Eyes: Perrl, EOMI ENT: Moist mucous membranes, No rhinorrhea Neck: Supple, Nontender Cardiovascular: Regular rate, Regular rhythm, No murmurs Respiratory: No distress, CTA bilaterally, Chest nontender Abdomen: Soft, Nontender, Nondistended, Normal bowel sounds Back: Nontender, Normal Inspection Extremities: No edema, - - Right upper extremity: Thumb: 3 cm flap laceration volar aspect proximal phalanx subcutaneous. Interphalangeal joint flexion intact without any pain. No paresthesias distally. Bleeding controlled. Skin: No rash, - Neurological: Alert, Oriented x3, Cranial nerves II-XII grossly intact, Normal Strength, Normal Sensation Psychological: Normal affect, Normal Mood Diagnostic/Tx/Re-eval - Medical Decision Making Patient's tetanus updated, patient reported large glass causing laceration. During repair, copiously flushed, for evaluation of the wound there was no foreign bodies noted. There was no tendon visualized. Full range of motion of the joint. Repaired using a total of 4, 4-0 nylon simple sutures with good approximation. Wound care discussed. Dressing by nursing along with AlumaFoam finger splint. Following up with her PCP 10 to 14 days for suture removal. Procedure note: Verbal consent. 3 cc 1% lidocaine used for a hemimetacarpal block to the volar aspect of the thumb. Turnicot was placed around the finger. Copiously flushing with normal saline with syringe. Hemostats were used to evaluate the wound, there was no foreign bodies or tendons visualized. 4, 4-0 nylon simple interrupted sutures placed to close the flap. Good approximation. Turnicot removed. Patient tolerated procedure well. ED Disposition - Plan for ED Patient: Disposition: Home or Assisted Living Diagnosis: Laceration of right thumb Instructions: ED Laceration, Hand: All Closures Additional Instructions: 4 sutures placed. Follow up with your doctor in 10-14 days for suture removal.
[2020-07-10] MEDS: Diphth,Pertuss(Acell),Tet Vac 0.5 ML Vial IM (15:54)
[2020-07-10] MEDS: Lidocaine 1% (20 ml mdv) 20 ML Vial INFILT (16:24)
== END 2020-07-10 16:30 | disposition home or self-care (01) ==
LOC: ED 16:23
PROVIDERS: Emergency Provider Emergency Medicine; PCP Family Medicine
DX: S61.011A Laceration without foreign body of right thumb without damage to nail, initial encounter (principal); Z23 Encounter for immunization; W25.XXXA Contact with sharp glass, initial encounter; Y93.9 Activity, unspecified; Y92.9 Unspecified place or not applicable; Y99.9 Unspecified external cause status
CPT/HCPCS: 12002; 90715; 99284

== ENCOUNTER → 2020-10-21 06:39 | Outpatient (CLI) | payer OTHER, SELFPAY ==
[2020-10-21 08:16] LABS: Hematocrit 38.6 % (37-47); Hemoglobin 12.7 g/dL (12.0-15.0); Mean Corp Hgb Conc 32.9 g/dL (32-36); Mean Corpuscular Hgb 30.1 pg (27.0-32.0); Mean Corpuscular Volume 91.5 fL (81-99); Mean Platelet Vol. 9.8 fl (6.2-12.0); Platelet Count 315 K/mm3 (150-450); RBC Distribution Width SD 40.4 fl (35.1-43.9); Red Blood Count 4.22 M/mm3 (4.2-5.4); White Blood Count 4.5 K/mm3 (4.4-11.0)
[2020-10-21 08:47] LABS: Insulin 17.1 mU/L (2.6-37.6); T3 Total - Triiodothyronine 1.35 ng/mL (0.6-1.81); Vitamin B12 378 pg/mL (211-911)
[2020-10-21 09:09] LABS: ALB/GLOB Ratio 1.1 RATIO (0.9-2.4); AST(SGOT) 16 U/L (15-37); Alanine Aminotransfer ALT/SGPT 23 U/L (13-56); Albumin, Serum 3.9 g/dL (3.2-5.0); Alkaline Phosphatase 67 U/L (45-117); Anion Gap 7 (5-15); BUN 13 mg/dL (7-18); BUN/Creat Ratio 17.3 RATIO (10-20); Calcium,Total 9.1 mg/dL (8.5-10.1); Chloride 104 mmol/L (98-107); Creatinine, Serum 0.75 mg/dL (0.55-1.02); EST Glomerular Filtration Rate 96 mL/min (>60); Est Glom Filt Rate - Afr Amer 116 mL/min (>60); Estradiol 38.6 pg/mL; Ferritin 76 ng/mL (8-252); Follicle Stimulating Hormone 8.1 mIU/mL; Free T3 3.2 pg/mL (2.18-3.98); Globulin 3.4 g/dL (2.2-4.2); Glucose 96 mg/dL (74-106); Iron 89 ug/dL (50-170); Iron Binding Capacity,Total 312 ug/dL (250-450); Potassium 3.8 mmol/L (3.5-5.1); Prolactin 8.3 ng/mL; Protein, Total 7.3 g/dL (6.4-8.2); Sodium Level 138 mmol/L (136-145); T4 Free Direct 1.04 ng/dL (0.76-1.46); Thyroid Stim Hormone (TSH) 1.78 uIU/mL (0.358-3.74)
[2020-10-22 16:09] LABS: Thyroid Peroxidase AB < 9 IU/mL (0-34)
[2020-10-23 12:08] LABS: Anti-Thyroglobulin AB < 1.0 IU/mL (0.0-0.9); Sex Hormone-binding Globulin 37.1 nmol/L (24.6-122.0); Thyroglobulin, Serum Qt. 17.6 ng/mL (1.5-38.5)
== END ==
PROVIDERS: PCP Family Medicine; Referring Provider Obstetrics & Gynecology; Visit Provider Obstetrics & Gynecology
DX: N91.5 Oligomenorrhea, unspecified (principal); R53.83 Other fatigue
CPT/HCPCS: 36415; 80053; 82306; 82533; 82607; 82627; 82670; 82728; 83001; 83525; 83540; 83550; 84146; 84270; 84403; 84432; 84439; 84443; 84480; 84481; 85027; 86376; 86800; 82626